=== PATIENT | female | born 1995 | race African-American/Black ===

== ENCOUNTER 2017-09-28 08:32 | Emergency (ER) | payer OTHER ==
[2017-09-28] MEDS ORDERED: LIDOCAINE VISCOUS 2% SOLN 15 ML UDC ONE (08:46)
--- NOTE | 2017-09-28 08:50 | EDPHYS ---
Physician Documentation [facility] Name: Irene Borja Age: 22 yrs Sex: Female : 1995 Arrival Date: 09/28/2017 Time: 08:37 Bed 20 Private MD: ED Physician Ramiro Abdi HPI: 09/28 08:47 This 22 yrs old Black Female presents to ER via Unassigned with complaints of Toothache.kb 08:47 The patient presents with broken tooth/teeth, pain. The problem is located in the lower kb right third molar (#32). Onset: The symptoms/episode began/occurred 3 day(s) ago. Duration: The symptoms are continuous, and are unchanged since they started. Modifying factors: The symptoms are alleviated by nothing, the symptoms are aggravated by talking. Associated signs and symptoms: Pertinent positives: pain, Pertinent negatives: anorexia, chills, dysphagia, fever, inability to eat, nausea, pain, swelling, vomiting. Severity of symptoms: At their worst the symptoms were moderate, in the emergency department the symptoms are unchanged. The patient has not experienced similar symptoms in the past. The patient has not recently seen a physician. 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 - Social history:: Smoking status: Patient/guardian denies using tobacco. ROS: 08:46 Constitutional: Negative for fever, chills, and weight loss, Cardiovascular: Negative kb for chest pain, palpitations, and edema, Respiratory: Negative for shortness of breath, cough, wheezing, and pleuritic chest pain, Abdomen/GI: Negative for abdominal pain, nausea, vomiting, diarrhea, and constipation, MS/Extremity: Negative for injury and deformity, Skin: Negative for injury, rash, and discoloration, Neuro: Negative for headache, weakness, numbness, tingling, and seizure. 08:46 ENT: Positive for dental pain. Exam: 08:46 Constitutional: This is a well developed, well nourished patient who is awake, alert, kb and in no acute distress. Head/Face: Normocephalic, atraumatic. Chest/axilla: Normal chest wall appearance and motion. Nontender with no deformity. No lesions are appreciated. Cardiovascular: Regular rate and rhythm with a normal S1 and S2. No gallops, murmurs, or rubs. Normal PMI, no JVD. No pulse deficits. Respiratory: Lungs have equal breath sounds bilaterally, clear to auscultation and percussion. No rales, rhonchi or wheezes noted. No increased work of breathing, no retractions or nasal flaring. Abdomen/GI: Soft, non-tender, with normal bowel sounds. No distension or tympany. No guarding or rebound. No evidence of tenderness throughout. Skin: Warm, dry with normal turgor. Normal color with no rashes, no lesions, and no evidence of cellulitis. MS/ Extremity: Pulses equal, no cyanosis. Neurovascular intact. Full, normal range of motion. Neuro: Awake and alert, GCS 15, oriented to person, place, time, and situation. Cranial nerves II-XII grossly intact. Motor strength 5/5 in all extremities. Sensory grossly intact. Cerebellar exam normal. Normal gait. 08:46 ENT: Dental exam: gum swelling, that is mild, specifically in the lower right third molar (#32), pain, that is moderate, specifically in the lower right third molar (#32). Vital Signs: 08:50 BP 143 / 88; Pulse 78; Resp 15; Temp 98.3; Pulse Ox 99% on R/A; Weight 69.4 kg; Height ch 5 ft. 8 in. (172.72 cm); Pain 10/10; 09:01 BP 135 / 64; Pulse 71; Resp 14; Temp 98.4; Pulse Ox 99% on R/A; Pain 9/10; ch 08:50 Body Mass Index 23.26 (69.40 kg, 172.72 cm) MDM: 08:41 Patient medically screened. kb 08:45 Data reviewed: vital signs, nurses notes. Data interpreted: Pulse oximetry: on room air kb is 100 %. Interpretation: normal. Counseling: I had a detailed discussion with the patient and/or guardian regarding: the historical points, exam findings, and any diagnostic results supporting the discharge/admit diagnosis, the need for outpatient follow up, a dentist, to return to the emergency department if symptoms worsen or persist or if there are any questions or concerns that arise at home. 08:49 ED course: Pt has appt with dentist on Saturday. kb Administered Medications: 08:48 Drug: Viscous Lidocaine Liquid (4 %) 5 ml Route: Mucous Membrane; Disposition: 18:39 Co-signature as Attending Physician, Ramiro Abdi MD. Disposition: 09/28/17 08:49 Discharged to Home. Impression: Toothache. - Condition is Stable. - Discharge Instructions: Dental Pain, [id number]. - Prescriptions for Amoxicillin 875 mg Oral Tablet - take 1 tablet by ORAL route every 12 hours for 7 days; 14 tablet. - Medication Reconciliation Form, Thank You Letter, Antibiotic Education, Prescription Opioid Use form. - Follow up: Emergency Department; When: As needed; Reason: Worsening of condition. Follow up: Private Physician; When: 2 - 3 days; Reason: Recheck today's complaints, Continuance of care, Re-evaluation by your physician. Signatures: Evelyn Peoples, HERIBERTO-C HERIBERTO-Jing Cao, RN [facility] Ramiro Abdi MD MD Corrections: (The following items were deleted from the chart) 08:48 08:46 ENT: Dental exam: pain, that is moderate, specifically in the lower right third kb molar (#32), kb 09:04 08:49 09/28/2017 08:49 Discharged to Home. Impression: Toothache. Condition is Stable. Forms are Medication Reconciliation Form, Thank You Letter, Antibiotic Education, Prescription Opioid Use. Follow up: Emergency Department; When: As needed; Reason: Worsening of condition. Follow up: Private Physician; When: 2 - 3 days; Reason: Recheck today's complaints, Continuance of care, Re-evaluation by your physician. kb
--- NOTE | 2017-09-28 08:50 | ER ---
Nurse's Notes [facility] Name: Irene Borja Age: 22 yrs Sex: Female : 1995 Arrival Date: 09/28/2017 Time: 08:37 Bed 20 Private MD: Diagnosis: Toothache Presentation: 09/28 08:48 Presenting complaint: Patient states: pain to RL jaw, and upper jaw now from broken ch tooth. states she is and has a dentist appointment saturday. Transition of care: patient was not received from another setting of care. Onset of symptoms was September 25, 2017. Initial Sepsis Screen: Does the patient meet any 2 criteria? No. Patient's initial sepsis screen is negative. Does the patient have a suspected source of infection? No. Patient's initial sepsis screen is negative. Care prior to arrival: None. 08:48 Method Of Arrival: Ambulatory 08:48 Acuity: BERNY 5 Triage Assessment: 08:50 General: Appears in no apparent distress. comfortable, Behavior is calm, cooperative. Pain: Complains of pain in lower right third molar (#32) Pain currently is 8 out of 10 on a pain scale. EENT: Reports pain in mouth. Respiratory: Airway is patent Respiratory effort is even, unlabored, Breath sounds are clear. 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 - Social history:: Smoking status: Patient/guardian denies using tobacco. Screenin:53 Abuse screen: Denies threats or abuse. Denies injuries from another. Nutritional screening: No deficits noted. Tuberculosis screening: No symptoms or risk factors identified. Fall Risk None identified. Assessment: 08:53 Reassessment: Patient appears in no apparent distress at this time. Patient and/or ch family updated on plan of care and expected duration. Pain level reassessed. Patient is alert, oriented x 3, equal unlabored respirations, skin warm/dry/pink. 09:01 Reassessment: Patient appears in no apparent distress at this time. No changes from previously documented assessment. Patient and/or family updated on plan of care and expected duration. Pain level reassessed. Patient is alert, oriented x 3, equal unlabored respirations, skin warm/dry/pink. pt is tearful in room. I re educate pt about being only safe medication is Tylenol. pt verb understanding. pt given phone to call her ride. Vital Signs: 08:50 BP 143 / 88; Pulse 78; Resp 15; Temp 98.3; Pulse Ox 99% on R/A; Weight 69.4 kg; Height 5 ft. 8 in. (172.72 cm); Pain 10/10; 09:01 BP 135 / 64; Pulse 71; Resp 14; Temp 98.4; Pulse Ox 99% on R/A; Pain 9/10; ch 08:50 Body Mass Index 23.26 (69.40 kg, 172.72 cm) ED Course: 08:37 Patient arrived in ED. sb2 08:41 Evelyn Peoples FNP-C is [facility]. kb 08:41 Ramiro Abdi MD is Attending Physician. 08:48 Jing Alejo, RN is Primary Nurse. 08:49 Triage completed. 08:50 Arm band placed on left wrist. 08:53 No apparent distress. Resting quietly. 08:53 Patient has correct armband on for positive identification. Bed in low position. Call light in reach. 08:53 No provider procedures requiring assistance completed. Patient did not have IV access during this emergency room visit. Administered Medications: 08:48 Drug: Viscous Lidocaine Liquid (4 %) 5 ml Route: Mucous Membrane; Outcome: 08:49 Discharge ordered by . 08:53 Discharged to home ambulatory. 08:53 Condition: stable 08:53 Discharge instructions given to patient, Instructed on discharge instructions, follow up and referral plans. 09:04 Patient left the ED. Signatures: Evelyn Peoples FNP-C FNP-Ckb Hammond, Christina, RN RN Rita Morrell sb2
[2017-09-28 09:17] VITALS: O2SAT 99
[2017-09-28 09:18] VITALS: BP 135/64; TEMP 98.4
== END 2017-09-28 09:04 | disposition home or self-care (01) ==
LOC: ER 08:32
DX: K08.89 Other specified disorders of teeth and supporting structures (principal)
CPT/HCPCS: 99283